=== PATIENT | male | born 1990 | race Caucasian/White ===

== ENCOUNTER 2017-02-21 10:45 | Emergency (ER) | payer OTHER ==
[~2017-02-21] VITALS: Ht 167.6 cm; Wt 82.0 kg
[2017-02-21 13:21] VITALS: BP 136/82
== END 2017-02-21 13:29 | disposition home or self-care (01) ==
LOC: ED 13:23
DX: J70.5 Respiratory conditions due to smoke inhalation (principal); R42 Dizziness and giddiness; R07.9 Chest pain, unspecified
CPT/HCPCS: 71010; 93005; 99284

== ENCOUNTER 2020-12-20 01:00 | Emergency (ER) | payer OTHER ==
[~2020-12-20] VITALS: Ht 170.2 cm; Wt 83.6 kg
[2020-12-20 01:11] VITALS: BP 131/58
--- NOTE | 2020-12-20 01:29 | NUR ---
PT MOVED TO T2 AND PLACED ON CR MONITOR, AND A&OX4.
--- NOTE | 2020-12-20 01:57 | NUR ---
MD TO EVAL PT AND XRAYS ORDERED AND ORDERS RECEIVED. PIV STARTED TO RIGHT AC X1 ATTEMPT, AND FLUSHED EASY AND SECURED, NO REDNESS OR SWELLING. PT TOLERATED WELL.
[2020-12-20] MEDS ORDERED: ONDANSETRON 2MG/ML, 2ML IVPush ONE (02:00)
[2020-12-20] MEDS ORDERED: MORPHINE SULFATE 4 MG/ML, 1ML IVPush PRN (02:00)
[2020-12-20] MEDS ORDERED: KETOROLAC 30 MG/1 ML IV ONE (02:00)
[2020-12-20] MEDS ORDERED: SODIUM CHLORIDE FLUSH 10ML SYR IVF ONE (02:00)
[2020-12-20] MEDS ORDERED: KETOROLAC 30 MG/1 ML ONE (02:01)
[2020-12-20] MEDS ORDERED: ONDANSETRON 2MG/ML, 2ML ONE (02:01)
[2020-12-20] MEDS ORDERED: MORPHINE SULFATE 4 MG/ML, 1ML ONE (02:02)
--- NOTE | 2020-12-20 02:31 | NUR ---
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 PT TOLERATED WELL, PT NOW RESTING COMFORTABLY, ON CR MONITOR, SIDERAILS UP X2 AND CALL LIGHT WITHIN REACH, AND PTS AT BEDSIDE.
--- NOTE | 2020-12-20 03:57 | NUR ---
TO SEE PT, AND NEW ORDERS RECEIVED TO PUT PT IN AN ARM SLING, AND INSTRUCTIONS FOR F/U AND D/C
--- NOTE | 2020-12-20 04:01 | NUR ---
SLING PLACED TO PTS LEFT ARM. PT ABLE TO STAND, AND IS STEADY, A&OX4, NO ACUTE DISTRESS. PT HAS A LOT MORE MOVEMENT, AND IT'S INTACT, AND HAS SORENESS ONLY AT THIS TIME. POSITIVE RADIAL PULSE AND HAND MOVEMENT. F/U AND D/C INSTRUCTIONS GIVEN TO PT AND PIV D/C'D AND CATH TIP INTACT. PT V/U OF INSTRUCTIONS AND AMBULATED TO DISCHARGE.
--- NOTE | 2020-12-20 04:45 | NUR ---
F/U AND D/C INSTRUCTIONS WITH PRESCRIPTIONS GIVEN TO PT AND HE V/U. PT AMBULATED TO DISCHARGE DESK. PT LEFT ARM IN SLING, PT HAS FULL RANGE OF MOTION NOW, MILD DISCOMFORT, AND FEELS BETTER.
== END 2020-12-20 04:47 | disposition home or self-care (01) ==
LOC: ED 01:10
DX: S40.022A Contusion of left upper arm, initial encounter (principal); M25.522 Pain in left elbow; V86.59XA Driver of other special all-terrain or other off-road motor vehicle injured in nontraffic accident, initial encounter; Y93.89 Activity, other specified; Y92.89 Other specified places as the place of occurrence of the external cause; Y99.8 Other external cause status
CPT/HCPCS: 99284